=== PATIENT | female | born 1940 | race Caucasian/White ===

== ENCOUNTER → 2017-03-30 | Outpatient (CLI) | payer MEDICARE ==
--- NOTE | 2017-03-30 11:46 | Diagnostic Imaging Report ---
PROCEDURE: US Carotid Duplex Bilateral. TECHNIQUE: Multiple real-time grayscale images were obtained over the carotid arteries in various projections bilaterally. Additional duplex Doppler and color Doppler images were also obtained. INDICATION: Carotid artery disease. FINDINGS: There is no significant plaque seen on grayscale images. Color Doppler demonstrates patency of the common, internal and external carotid arteries bilaterally. There is antegrade flow demonstrated in the vertebral arteries on both sides. Peak systolic velocities in the right ICA are 77, 67 and 96 cm/s and on the left 62, 78 and 104 cm/s. ICA/CCA ratios are up to 1.2 on the right side and up to 1.1 on the left. IMPRESSION: Estimated underlying stenosis is in the range of 0-25% bilaterally. Dictated by: Dictated on workstation # [id number]
--- NOTE | 2017-03-30 19:26 | ECHOCARDIOGRAPHY REPORT ---
DATE OF SERVICE: 03/30/2017 ECHOCARDIOGRAM ORDERING PHYSICIAN: Dr. Bowman. DIAGNOSIS: Orthopnea, cardiac murmur. FINDINGS: 1. Sinus rhythm. 2. Left atrial dimensions are normal. 3. Aortic root dimensions are normal. 4. Left ventricular systolic function is preserved. Left ventricular ejection fraction is 65%. No LVH is present. 5. There are no wall motion abnormalities. 6. Right heart size and function is normal. 7. There is no evidence of pericardial effusion. 8. Mild diastolic dysfunction is present. 9. IVC is normal. VALVULAR STRUCTURE OF THE HEART: There is mild tricuspid regurgitation with mild mitral regurgitation. There is mild aortic insufficiency with no aortic stenosis noted. The pulmonic valve was not well visualized. RVSP is 31 mmHg. CONCLUSION: 1. LV and RV size and function is normal. 2. LVEF is 65%. 3. There is no significant valvular heart disease. 4. Mild pulmonary hypertension with RVSP of 31 mmHg. Job ID: [id number] DocumentID: [id number] Dictated Date: 03/30/2017 15:46:27 Data Administrator Date: 03/30/2017 18:21:44 Dictated By: REJI MORRIS MD
== END ==
LOC: CARD 09:46
PROVIDERS: ATTEND Family Medicine
DX: I65.23 Occlusion and stenosis of bilateral carotid arteries (principal); R01.1 Cardiac murmur, unspecified; R06.01 Orthopnea; I27.2 Other secondary pulmonary hypertension
CPT/HCPCS: 93306; 93880

== ENCOUNTER → 2017-09-21 | Outpatient (CLI) | payer MEDICARE ==
--- NOTE | 2017-09-21 16:26 | Diagnostic Imaging Report ---
Three views of the right knee. INDICATION: Right knee pain. FINDINGS: There is no fracture, dislocation, or radiopaque foreign body. Marginal osteophytes in the lateral and patellofemoral compartments are seen. No significant joint space narrowing. No suprapatellar effusion is evident. IMPRESSION: [id number] degenerative changes in the medial and patellofemoral compartments. Dictated by: Dictated on workstation # [id number]
== END ==
LOC: RAD 10:02
PROVIDERS: ATTEND Family Medicine
DX: M17.11 Unilateral primary osteoarthritis, right knee (principal)
CPT/HCPCS: 73562

== ENCOUNTER → 2018-01-18 | Outpatient (CLI) | payer MEDICARE ==
[2018-01-18 11:08] LABS: BASOPHILS % (AUTO) 1 % (0-10); EOSINOPHILS # (AUTO) 0.1 10^3/uL (0.0-0.3); EOSINOPHILS % (AUTO) 2 % (0-10); HEMATOCRIT 44 % (35-52); HEMOGLOBIN 14.2 G/DL (11.5-16.0); LYMPHOCYTES # (AUTO) 1.2 X 10^3 (1.0-4.0); LYMPHOCYTES % (AUTO) 26 % (12-44); MEAN CORPUSCULAR HEMOGLOBIN 30 PG (25-34); MEAN CORPUSCULAR HGB CONC 33 G/DL (32-36); MEAN CORPUSCULAR VOLUME 94 FL (80-99); MEAN PLATELET VOLUME 11.6 FL (7.4-10.4); MONOCYTES # (AUTO) 0.5 X 10^3 (0.0-1.0); MONOCYTES % (AUTO) 10 % (0-12); NEUTROPHILS # (AUTO) 2.7 X 10^3 (1.8-7.8); NEUTROPHILS % (AUTO) 61 % (42-75); PLATELET COUNT 194 10^3/uL (130-400); RED BLOOD COUNT 4.67 10^6/uL (4.35-5.85); RED CELL DISTRIBUTION WIDTH 14.3 % (10.0-14.5); WHITE BLOOD COUNT 4.5 10^3/uL (4.3-11.0)
[2018-01-18 11:34] LABS: ALANINE AMINOTRANSFERASE 20 U/L (0-55); ALBUMIN 4.3 GM/DL (3.2-4.5); ALKALINE PHOSPHATASE 80 U/L (40-136); AMYLASE 45 U/L (25-125); BILIRUBIN,TOTAL 0.6 MG/DL (0.1-1.0); BUN/CREATININE RATIO 21; CALCIUM 9.3 MG/DL (8.5-10.1); CARBON DIOXIDE 26 MMOL/L (21-32); CHLORIDE 106 MMOL/L (98-107); CREATININE SERUM 0.73 MG/DL (0.60-1.30); GFR ESTIMATED > 60; GLUCOSE 94 MG/DL (70-105); LIPASE 21 U/L (8-78); POTASSIUM 3.7 MMOL/L (3.6-5.0); SODIUM 141 MMOL/L (135-145); TOTAL PROTEIN 6.8 GM/DL (6.4-8.2)
[2018-01-18 11:41] LABS: ERYTHROCYTE SEDIMENTATION RATE 9 MM/HR (0-30)
--- NOTE | 2018-01-18 12:01 | Diagnostic Imaging Report ---
INDICATION: Fatigue and shortness of breath PA and lateral chest obtained at 1115 hrs am, and compared to 08/31/2009. Heart and mediastinal silhouette are normal in appearance. The lungs are clear. There is no pneumothorax or pleural fluid. There is scoliotic change. There is diffuse degenerative change of the thoracic spine. IMPRESSION: No acute process in the chest and no change from 08/31/2009. Report was called to Liss/product safety officer of Dr. Bowman by jillian at 12:00 pm. Dictated by: Dictated on workstation # [id number]
== END ==
LOC: CARD 10:42
PROVIDERS: ATTEND Family Medicine
DX: R06.00 Dyspnea, unspecified (principal); R07.89 Other chest pain; R53.83 Other fatigue; R10.13 Epigastric pain
CPT/HCPCS: 36415; 71046; 80053; 82150; 83690; 84443; 84484; 85025; 85379; 85652; 93005

== ENCOUNTER → 2018-01-19 | Outpatient (CLI) | payer MEDICARE | LOC: LAB 09:48 | PROVIDERS: ATTEND Family Medicine | DX: S70.262A Insect bite (nonvenomous), left hip, initial encounter (principal); W57.XXXA Bitten or stung by nonvenomous insect and other nonvenomous arthropods, initial encounter | CPT/HCPCS: 36415; 86618; 86666; 86668; 86757 ==

== ENCOUNTER → 2018-02-10 | Outpatient (CLI) | payer MEDICARE | LOC: CARD 13:37 | PROVIDERS: ATTEND Family Medicine | DX: R06.00 Dyspnea, unspecified (principal); R10.13 Epigastric pain; I35.1 Nonrheumatic aortic (valve) insufficiency | CPT/HCPCS: 93306 ==

== ENCOUNTER → 2018-05-31 | Outpatient (CLI) | payer MEDICARE ==
[~2018-05-31] MED LIST: CHOL200014 PO; VIT1TABL83 PO; VITA1TAB17 PO
--- NOTE | 2018-05-31 12:07 | Diagnostic Imaging Report ---
INDICATION: Routine screening. COMPARISON: 07/10/2016 and 04/11/2015. TECHNIQUE: 2D and 3D bilateral screening mammography was performed with CAD. FINDINGS: Scattered fibroglandular densities are identified bilaterally. A biopsy clip in the upper outer left breast is again noted. Areas of nodularity in the retroareolar left breast appear stable to perhaps slightly smaller when compared with the prior exam. There are benign calcifications bilaterally. No spiculated mass or malignant appearing microcalcifications are seen. The axillae are unremarkable. IMPRESSION: No mammographic features suspicious for malignancy are identified. ACR BI-RADS Category 2: Benign findings. Result letter will be mailed to the patient. Note: At least 10% of breast cancer is not imaged by mammography. Dictated by: Dictated on workstation # [id number]
== END ==
LOC: RAD 07:27
PROVIDERS: ATTEND Family Medicine
DX: Z12.31 Encounter for screening mammogram for malignant neoplasm of breast (principal)
CPT/HCPCS: 77067

== ENCOUNTER 2018-06-14 10:05 | Outpatient (CLI) | payer MEDICARE ==
[~2018-06-14] VITALS: Ht 167.6 cm; Wt 68.9 kg
[2018-06-14] MEDS ORDERED: VIT1TABL83 PO (10:15)
[2018-06-14] MEDS ORDERED: CHOL200014 PO (10:15)
[2018-06-14] MEDS ORDERED: VITA1TAB17 PO (10:15)
== END 2018-06-14 10:15 | disposition home or self-care (01) ==
LOC: PREOP 10:05
PROVIDERS: ATTEND Surgery
DX: Z01.818 Encounter for other preprocedural examination (principal)

== ENCOUNTER 2018-06-15 09:10 | Day surgery (SDC) | payer MEDICARE ==
[~2018-06-15] VITALS: Ht 167.6 cm; Wt 68.9 kg
[2018-06-15] MEDS ORDERED: NS IV 500 ML 500 ML IV PRN (09:12)
[2018-06-15] MEDS ORDERED: HURRICAINE EXT TUBE (BENZOCAINE) XX PRN (09:15)
[2018-06-15] MEDS ORDERED: NS IV 500 ML 500 ML ONE (09:15)
[2018-06-15] MEDS ORDERED: LIDOCAINE JELLY 2% (XYLOCAINE) 5 ML TUBE MM PRN (09:15)
[2018-06-15 09:20] VITALS: BP 143/99
[2018-06-15] MEDS ORDERED: LIDOCAINE JELLY 2% (XYLOCAINE) 5 ML TUBE ONE (09:53)
[2018-06-15] MEDS ORDERED: fentaNYL INJECTION 100 MCG/2 ML AMP ONE ×2 (09:53)
[2018-06-15] MEDS ORDERED: MIDAZOLAM 2 MG/2 ML (VERSED) VIAL ONE ×4 (09:53→09:54)
[2018-06-15] MEDS ORDERED: HURRICAINE EXT TUBE (BENZOCAINE) ONE (09:54)
[2018-06-15] MEDS: fentaNYL INJECTION 100 MCG/2 ML AMP IVP PRN ×4 (10:20→10:50)
--- NOTE | 2018-06-15 10:20 | Progress Note-Pre Operative ---
Pre-Operative Progress Note H&P Reviewed The H&P was reviewed, patient examined and no changes noted. Date Seen by Provider: Jun 15, 2018 Time Seen by Provider: 09:45 Date H&P Reviewed: Jun 15, 2018 Time H&P Reviewed: 09:45 Pre-Operative Diagnosis: abdominal pain, GERD KIEL PIEDRA MD Jun 15, 2018 10:20 am
--- NOTE | 2018-06-15 10:20 | Conscious Sedation/ASA ---
Conscious Sedation Pre-Proced Time Reviewed: 09:45 ASA Class: 2 Airway Mallampati Classification: ([place] appropriate class) I. II. III, IV Lungs Heart ASA score ASA 1: a normal healthy patient ASA 2: a patient with a mild systemic disease (mid diabetes, controlled hypertension, obesity ASA 3: a patient with a severe systemic disease that limits activity (angina , COPD, prior Myocardial infarction) ASA 4: a patient with an incapacitating disease that is a constant threat to life (CHF, renal failure) ASA 5: a moribund patient not expected to survive 24 hrs. (ruptured aneurysm) ASA 6: a declared brain patient whose organs are being harvested. For emergent operations, add the letter E after the classification Grade 2 Sedation Plan: Analgesia, Amnesia, Plan communicated to team members, Discussed options with patient/fam, Discussed risks with patient/fam Note The patient is an appropriate candidate to undergo the planned procedure, sedation, and anesthesia. The patient immediately re-assessed prior to indication. KIEL PIEDRA MD Jun 15, 2018 10:19 am
[2018-06-15] MEDS: MIDAZOLAM 2 MG/2 ML (VERSED) VIAL IVP PRN ×4 (10:25→10:47)
[2018-06-15] MEDS ORDERED: ONDANSETRON 4 MG/2 ML (SDV) Z0FRAN IV PRN (10:30)
[2018-06-15] MEDS ORDERED: ACETAMINOPHEN 325 MG TABLET PO PRN (10:30)
--- NOTE | 2018-06-15 11:08 | Progress Note-Post Operative ---
Post-Operative Progess Note Surgeon (s)/Wad Compressor Operator Adjuster (s) Surgeon KIEL PIEDRA MD Wad Compressor Operator Adjuster: none Pre-Operative Diagnosis abdominal pain, GERD Post-Operative Diagnosis reflux esophagitis(grade 2), no HH, mild gastritis. chronic stage 2 ext and int hemorrhoids. Procedure & Operative Findings Date of Procedure 06/15/18 Procedure Performed/Findings EGD with bx. Colonoscopy. Anesthesia Type CS Estimated Blood Loss Estimated blood loss (mL): minimal Specimens/Packing Specimens Removed GE jxn, antrum KIEL PIEDRA MD Jun 15, 2018 11:08 am
--- NOTE | 2018-06-15 11:10 | Discharge Inst-Surgical ---
D/C Lap Instructions-TADEO Follow Up 10 yrs or PRN Activity as tolerated High Fiber Diet 25g or more per day Avoid Alcohol, Caffeine, Spicy [place] and Acid foods. Drink 64 fluid oz or more of fluids per day. Symptoms to Report: Fever over 101 degree F, Nausea/Vomiting If any problems/questions: Contact your physician or go to Emergency Room KIEL PIEDRA MD Jun 15, 2018 11:10 am
[2018-06-15 11:30] VITALS: BP 127/76
[2018-06-15 12:05] VITALS: BP 118/82
[2018-06-15 16:29] VITALS: BP 118/82
--- NOTE | 2018-06-15 19:11 | OPERATIVE REPORT ---
DATE OF SERVICE: 06/15/2018 ATTENDING PRIMARY CARE PHYSICIAN: Dr. Bowman. PREOPERATIVE DIAGNOSES: Crampy abdominal pain, diffuse abdominal pain, heme positive stools. POSTOPERATIVE DIAGNOSES: Reflux esophagitis grade II. No hiatal hernia, mild gastritis. Chronic stage II external and internal hemorrhoids. Remainder of the colon and rectum were normal. PROCEDURE: EGD with biopsy, colonoscopy. SURGEON: Kiel Piedra MD ANESTHESIA: Conscious sedation. ESTIMATED BLOOD LOSS: Minimal. FINDINGS: EGD, reflux esophagitis class B with grade II. No hiatal hernia identified. Mild gastritis. No formal ulcers, polyps or any neoplasms. Pylorus and duodenum appeared normal. Colonoscopy, chronic stage II external and internal hemorrhoids, not actively edematous nor inflamed and no bleeding. The remainder of the colon or rectum were normal. There were no polyps identified. DISPOSITION: The patient tolerated the procedure well. INDICATIONS: The patient is a 77-year-old female known to us. She has had crampy left-sided abdominal pain for many years; however, states that this may be worsening over time. She also does report some occasional episodes of reflux and does notice blood in her stools as well. She does follow a healthy diet high in protein as well as high in fiber and does have a soft stool daily. DESCRIPTION OF PROCEDURE: The patient was brought to the endoscopy suite, laid in the left lateral decubitus position. After adequate IV pain and sedative medications and conscious sedation anesthesia, the mouthpiece was applied. The endoscope was then placed in the mouth visualizing the pharynx and hypopharyngeal region. Vocal cords, epiglottis and vallecula identified and appeared to be normal. The endoscope was then gently intubated in the esophageal opening and esophagus insufflated. The endoscope was then advanced to the first, second and third portion of the esophagus at the level of the GE junction, a reflux esophagitis class B identified. There are no ulcers or strictures identified in this region. A biopsy was taken with forceps with visualization of good hemostasis. The endoscope was then easily advanced into the stomach and endoscope retroflexed. No hiatal hernia was identified. There was a mild gastritis. There were no ulcers, polyps or any neoplasms identified. A biopsy was taken of the stomach antrum for H. pylori with visualization of good hemostasis. The endoscope was then advanced to the pylorus into the first and second portions of the duodenum, which appeared normal with no distal obstructions. The endoscope was then slowly withdrawn while taking a second look and suctioning of residual air with no additional findings. The patient tolerated this portion of the procedure well. We will recommend continued medical management with continued high fiber and high protein diet. Her only risk factors taking caffeinated beverages and if her symptoms of reflux were to worsen, we will just recommend decreasing or cessation of caffeinated beverages. Under the same anesthesia, we then proceeded with the colonoscopy portion of procedure. A digital rectal examination was performed, which revealed chronic stage II external and internal hemorrhoids, not actively edematous nor inflamed and no bleeding. Normal sphincter tone was felt and there were no palpable masses. The endoscope was then intubated into the anus and rectum gently insufflated. The endoscope was then advanced through the valves of [place] in the rectum with no polyps or neoplasms identified. The endoscope was then advanced to the sigmoid colon where no diverticulosis identified. The endoscope was then advanced to the remainder of the descending, transverse and ascending colon to the cecum. These segments were normal. There were no polyps or any neoplasms identified as well as no bleeding sources. The endoscope was then slowly withdrawn while taking a second look and suctioning of residual air with no additional findings. The patient tolerated the procedure well. We feel that her crampy abdominal pain is most likely secondary to a high fiber diet as well as underlying irritable bowel syndrome. It was explained to her that this was a normal process and that she should continue with a high fiber diet. Over time, the crampy abdominal pain tends to decrease in severity and becomes more tolerable. No neoplasms were identified and she does not need another colonoscopy for another 10 years. Job ID: [id number] DocumentID: [id number] Dictated Date: 06/15/2018 11:04:22 Circular Head Saw Operator Date: 06/15/2018 19:10:31 Dictated By: KIEL PIEDRA MD [facility]
== END 2018-06-15 12:15 | disposition home or self-care (01) ==
LOC: ENDO 09:10
PROVIDERS: ATTEND Surgery
DX: K21.0 Gastro-esophageal reflux disease with esophagitis (principal); K64.1 Second degree hemorrhoids; Z80.0 Family history of malignant neoplasm of digestive organs; Z80.3 Family history of malignant neoplasm of breast; H35.30 Unspecified macular degeneration

== ENCOUNTER 2018-12-30 06:59 | Outpatient (RCR) | payer MEDICARE ==
[~2018-12-30] VITALS: Ht 167.6 cm; Wt 72.6 kg
[2018-12-30] MEDS: CATHETER FLUSH 10 ML SYR IV PRN ×2 (07:24→08:52)
[2018-12-30] MEDS ORDERED: REGADENOSON 0.4 MG/5 ML SYR (LEXISCAN) IV ONE ×2 (08:15→08:48)
[2018-12-30 08:50] VITALS: BP 137/74
--- NOTE | 2019-01-03 09:00 | STRESS TEST ---
DATE OF SERVICE: 12/30/2018 RESTING AND POST REGADENOSON TECHNETIUM-99M TETROFOSMIN SPECT CT IMAGING ORDERING PHYSICIAN: Dr. Chavez. PRIMARY PHYSICIAN: Dr. Bowmna. CLINICAL DIAGNOSIS: Shortness of breath. Baseline images were carried out after injection of 10.17 mCi of technetium-99m Tetrofosmin. This was followed by 0.4 mg regadenoson and 32.8 mCi technetium-99m Tetrofosmin for stress imaging. The electrocardiogram showed sinus rhythm at baseline. It did not change significantly with the regadenoson infusion. The patient noted some shortness of breath and stomach discomfort following regadenoson infusion. This resolved in a few minutes. Overall, she tolerated the procedure well. Review of images at rest and following stress does not indicate any significant perfusion defects consistent with significant myocardial ischemia or infarction. Gated images show normal global left ventricular systolic function with normal regional wall motion. Left ventricular ejection fraction is calculated to be 71%. Left ventricular end diastolic volume is 49 mL. TID is absent (0.91). CONCLUSIONS: 1. No evidence of any significant myocardial ischemia or infarction on the study. 2. Normal regional wall motion. 3. Normal global left ventricular systolic function with a calculated ejection fraction of 71%. Job ID: [id number] DocumentID: [id number] Dictated Date: 01/03/2019 08:36:28 Control Specialist Date: 01/03/2019 09:00:09 Dictated By: MERCED CHAVEZ MD, MA, FACP, FACC,
[2019-02-22] MEDS ORDERED: CARB10DR (01:16)
[2019-02-22] MEDS ORDERED: ONDA4TAB11 PO (02:21)
[2019-02-22] MEDS ORDERED: HYOS0.1283 SL (02:21)
== END 2019-03-30 | disposition home or self-care (01) ==
LOC: CARD 06:59
PROVIDERS: ATTEND Internal Medicine Cardiovascular Disease
DX: R06.02 Shortness of breath (principal); R00.2 Palpitations; R20.0 Anesthesia of skin; R42 Dizziness and giddiness
CPT/HCPCS: 78452; 93017

== ENCOUNTER → 2019-01-31 | Outpatient (CLI) | payer MEDICARE | LOC: RAD 13:00 | PROVIDERS: ATTEND Nurse Practitioner Family | DX: I70.213 Atherosclerosis of native arteries of extremities with intermittent claudication, bilateral legs (principal) | CPT/HCPCS: 93923 ==

== ENCOUNTER 2019-02-22 01:00 | Emergency (ER) | payer MEDICARE ==
[~2019-02-22] VITALS: Ht 167.6 cm; Wt 72.6 kg
[2019-02-22] MEDS ORDERED: CARB10DR (01:16)
[2019-02-22] MEDS ORDERED: LACTATED RINGERS 1,000 ML IV ONE (01:22)
[2019-02-22] MEDS ORDERED: ONDANSETRON 4 MG/2 ML (SDV) Z0FRAN IVP ONE (01:30)
--- NOTE | 2019-02-22 01:36 | ED GI ---
General Chief Complaint: Abdominal/GI Problems Stated Complaint: POSS FOOD POISONING Nursing Triage Note: NAUSEA/ABDOMINAL CRAMPING Sepsis Screen: No Definite Risk Source of Information: Patient History of Present Illness Date Seen by Provider: Feb 22, 2019 Time Seen by Provider: 01:20 Initial Comments PT ARRIVES VIA POV FROM HOME WITH SISTER, WITH WHOM SHE LIVES, AND A FEMALE FRIEND PT STATES AROUND 1800 TONIGHT, SHE BEGAN TO HAVE "EXTREME NAUSEA" --NO VOMITING HAD VERY BRIEF "FLEETING" ABDOMINAL CRAMPING, BUT NOT NOW. NO OTHER ABDOMINAL PAIN STATES "MY KIDNEYS HURT" NO DIARRHEA, HAD A NORMAL BM THIS AM NO FEVER NO URINARY SYMPTOMS AND VOIDING A NORMAL AMOUNT NO RELIEF WITH TUMS NO SICK CONTACTS PT AND FRIEND ATE AT [facility]--ATE DIFFERENT THINGS. FRIEND IS NOT ILL. NO HISTORY OF GI PROBLEMS PCP: DR. LR Allergies and Home Medications Allergies Coded Allergies: clindamycin (Verified Allergy, Unknown, NAUSEA, 06/14/18) epinephrine (Verified Allergy, Unknown, 04/16/09) hydrocodone (Verified Allergy, Unknown, hallucinations, 06/14/18) ibuprofen (Verified Allergy, Unknown, swelling, 06/14/18) Home Medications Cholecalciferol (Vitamin D3) 2,000 Unit Tablet, 2,000 UNIT PO DAILY, (Reported) Hyoscyamine Sulfate 0.125 Mg Tab.subl, 1-2 TAB SL Q4H Prescribed by: ETHEL XIE on 02/22/19220 Ondansetron 4 Mg Tab.rapdis, 4 MG PO Q4H Prescribed by: ETHEL XIE on 02/22/19220 Vit A,C & E/Lutein/Minerals 1 Each Tablet, 1 EACH PO DAILY, (Reported) Vitamin B Complex 1 Each Tablet, 1 EACH PO DAILY, (Reported) Patient Home Medication List Home Medication List Reviewed: Yes Review of Systems Review of Systems Constitutional: no symptoms reported; No chills, No diaphoresis, No dizziness, No fever Respiratory: No Symptoms Reported Cardiovascular: No Symptoms Reported Gastrointestinal: Abdominal Pain; Denies Diarrhea; Nausea, Poor Appetite; Denies Vomiting Genitourinary: No Symptoms Reported Musculoskeletal: see HPI, back pain Skin: no symptoms reported Psychiatric/Neurological: No Symptoms Reported Endocrine: No Symptoms Reported Hematologic/Lymphatic: No Symptoms Reported Past Vylcdqs-Qfgzev-Ejqowa Hx Patient Social History Alcohol Use: Rarely Uses Recreational Drug Use: No Smoking Status: Never a Smoker 2nd Hand Smoke Exposure: No Recent Foreign Travel: No Contact w/Someone Who Travel: No Recent Infectious Disease Expo: No Recent Hopitalizations: No Immunizations Up To Date Tetanus Booster (TDap): Unknown Seasonal Allergies Seasonal Allergies: No Past Medical History Surgeries: Yes (R FOOT NEUROMA; BREAST BIOPSIES X 2; HYST/BSO; BASAL CELL CANCER REMOVED FROM HEAD; EGD/COLONOSCOPIES--LAST ONE 06/2018) Breast, Eye Surgery, Hysterectomy, Oophorectomy, Orthopedic, Tonsillectomy Respiratory: No Cardiac: No Neurological: Yes Neuropathy : No Reproductive Disorders: No TEST CLERK History: Hysterectomy, Menopausal Sexually Transmitted Disease: No Genitourinary: Yes UTI-Chronic Gastrointestinal: Yes Gastroesophageal Reflux Musculoskeletal: No Endocrine: No HEENT: Yes Cataract, Macular Degeneration Cancer: Yes Skin Did You Recieve Any Treatments: Yes What Type of Treatment Did You: Surgical Intervention Psychosocial: No Integumentary: No Blood Disorders: No Physical Exam Vital Signs Vital Signs - First Documented 02/22/19 01:09 Temp 98.9 Pulse 72 Resp 16 B/P (MAP) 149/82 (104) Pulse Ox 99 O2 Delivery Room Air Capillary Refill : Less Than 3 Seconds Height/Weight/BMI Height: 5'6.00" Weight: 160lbs. 0.0oz. 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, no motor/sensory deficits, alert, oriented x 3 Skin: normal color, warm/dry Focused Exam Lactate Level 02/22/19 01:45: Lactic Acid Level 1.05 Lactic Acid Level Laboratory Tests Test 02/22/19 01:45 Lactic Acid Level 1.05 MMOL/L (0.50-2.00) Progress/Results/Core Measures Results/Orders Lab Results Laboratory Tests Test 02/22/19 01:40 02/22/19 01:45 Range/Units Urine Color YELLOW Urine Clarity CLEAR Urine pH 8 5-9 Urine Specific [place] 1.010 L 1.016-1.022 Urine Protein NEGATIVE NEGATIVE Urine Glucose (UA) NEGATIVE NEGATIVE Urine Ketones NEGATIVE NEGATIVE Urine Nitrite NEGATIVE NEGATIVE Urine Bilirubin NEGATIVE NEGATIVE Urine Urobilinogen NORMAL NORMAL MG/DL Urine Leukocyte Esterase 1+ H NEGATIVE Urine RBC (Auto) NEGATIVE NEGATIVE Urine RBC NONE /HPF Urine WBC NONE /HPF Urine Squamous Epithelial Cells 0-2 /HPF Urine Crystals NONE /LPF Urine Bacteria NEGATIVE /HPF Urine Casts NONE /LPF Urine Mucus NEGATIVE /LPF Urine Culture Indicated NO White Blood Count 9.1 4.3-11.0 10^3/uL Red Blood Count 4.79 4.35-5.85 10^6/uL Hemoglobin 14.2 11.5-16.0 G/DL Hematocrit 44 35-52 % Mean Corpuscular Volume 92 80-99 FL Mean Corpuscular Hemoglobin 30 25-34 PG Mean Corpuscular Hemoglobin Concent 32 32-36 G/DL Red Cell Distribution Width 14.1 10.0-14.5 % Platelet Count 186 130-400 10^3/uL Mean Platelet Volume 11.3 H 7.4-10.4 FL Neutrophils (%) (Auto) 86 H 42-75 % Lymphocytes (%) (Auto) 8 L 12-44 % Monocytes (%) (Auto) 6 0-12 % Eosinophils (%) (Auto) 1 0-10 % Basophils (%) (Auto) 0 0-10 % Neutrophils # (Auto) 7.9 H 1.8-7.8 X 10^3 Lymphocytes # (Auto) 0.7 L 1.0-4.0 X 10^3 Monocytes # (Auto) 0.5 0.0-1.0 X 10^3 Eosinophils # (Auto) 0.1 0.0-0.3 10^3/uL Basophils # (Auto) 0.0 0.0-0.1 10^3/uL Sodium Level 142 135-145 MMOL/L Potassium Level 3.6 3.6-5.0 MMOL/L Chloride Level 105 98-107 MMOL/L Carbon Dioxide Level 25 21-32 MMOL/L Anion Gap 12 5-14 MMOL/L Blood Urea Nitrogen 18 7-18 MG/DL Creatinine 0.78 0.60-1.30 MG/DL Estimat Glomerular Filtration Rate > 60 BUN/Creatinine Ratio 23 Glucose Level 122 H 70-105 MG/DL Lactic Acid Level 1.05 0.50-2.00 MMOL/L Calcium Level 9.4 8.5-10.1 MG/DL Corrected Calcium 9.2 8.5-10.1 MG/DL Magnesium Level 2.1 1.8-2.4 MG/DL Total Bilirubin 0.5 0.1-1.0 MG/DL Aspartate Amino Transf (AST/SGOT) 26 5-34 U/L Alanine Aminotransferase (ALT/SGPT) 28 0-55 U/L Alkaline Phosphatase 87 40-136 U/L Total Protein 6.7 6.4-8.2 GM/DL Albumin 4.2 3.2-4.5 GM/DL Amylase Level 44 25-125 U/L Lipase 28 8-78 U/L My Orders Orders - ETHEL XIE DO Ed Iv/Invasive Line Start (02/22/19 01:22) Monitor-Rhythm Ecg Trace Only (02/22/19 01:22) Amylase (02/22/19:22) Cbc With Automated Diff (02/22/19 01:22) Comprehensive Metabolic Panel (02/22/19 01:22) Lactic Acid Analyzer (02/22/19 01:22) Lipase (02/22/19:22) Magnesium (02/22/19 01:22) Ua Culture If Indicated (02/22/19 01:22) Ondansetron Injection (Zofran Injectio (02/22/19 01:30) Ed Iv/Invasive Line Start (02/22/19 01:22) Lactated Ringers (Lr 1000 Ml Iv Solution (02/22/19 01:22) Rx-Hyoscyamine Tab (Rx-Levsin Sl) (02/22/19 02:21) Rx-Ondansetron Po (Rx-Zofran Po) (02/22/19 02:21) Rx-Hyoscyamine Tab (Rx-Levsin Sl) (02/22/19 02:24) Rx-Ondansetron Po (Rx-Zofran Po) (02/22/19 02:23) Medications Given in ED Current Medications Medications Dose Ordered Sig/Tai Route Start Time Stop Time Status Last Admin Dose Admin Lactated Ringer's 1,000 ml @ 0 mls/hr Q0M ONCE IV 02/22/19 01:22 02/22/19 01:24 DC 02/22/19 01:43 0 MLS/HR Ondansetron HCl 4 mg ONCE ONCE IVP 02/22/19 01:30 02/22/19 01:31 DC 02/22/19 01:43 4 MG Vital Signs/I&O 02/22/19 02/22/19 01:09 02:47 Temp 98.9 98.9 Pulse 72 74 Resp 16 20 B/P (MAP) 149/82 (104) 161/88 (112) Pulse Ox 99 97 O2 Delivery Room Air Room Air Blood Pressure Mean: 104 Progress Progress Note : Progress Note NAUSEA IMPROVED WITH MEDICATIONS--STATES SHE FEELS MUCH BETTER PT TOLERATING ICE CHIPS PRIOR TO DISMISSAL PT FEELS COMFORTABLE GOING HOME Departure Impression Primary Impression: Gastroenteritis Disposition: HOME, SELF-CARE Condition: Improved Departure-Patient Inst. Referrals: MONTSERRAT LR DO (PCP/Family) Primary Care Physician Patient Instructions: [id number] Add. Discharge Instructions: CLEAR LIQUIDS--WATER, BROTH, JELLO, GATORADE WHEN YOU ARE FEELING BETTER AND TOLERATING LIQUIDS, YOU MAY ADD A BRATS DIET TO CLEAR LIQUIDS--BANANAS, RICE, APPLESAUCE, TOAST, SALTINES FOLLOW UP WITH YOUR DR IN 2 DAYS IF NO BETTER, RETURN TO ER IF WORSE All discharge instructions reviewed with patient and/or family. Voiced understanding. Scripts Hyoscyamine Sulfate (Levsin-Sl) 0.125 Mg Tab.subl 1-2 TAB SL Q4H for Abdominal Pain, #10 TAB Prov: ETHEL XIE DO 02/22/19 Ondansetron (Ondansetron Odt) 4 Mg Tab.rapdis 4 MG PO Q4H for Nausea/Vomiting, #10 TAB Prov: ETHEL XIE DO 02/22/19 ETHEL XIE DO Feb 22, 2019 01:36
[2019-02-22 01:53] LABS: BILIRUBIN,URINE NEGATIVE (NEGATIVE); CLARITY,URINE CLEAR; COLOR,URINE YELLOW; GLUCOSE, URINE (UA) NEGATIVE (NEGATIVE); KETONES,URINE NEGATIVE (NEGATIVE); LEUKOCYTE ESTERASE ,URINE 1+ (NEGATIVE); NITRITE,URINE NEGATIVE (NEGATIVE); PH,URINE 8 (5-9); PROTEIN,URINE NEGATIVE (NEGATIVE); UROBILINOGEN,URINE NORMAL (NORMAL)
[2019-02-22 01:54] LABS: BASOPHILS % (AUTO) 0 % (0-10); EOSINOPHILS # (AUTO) 0.1 10^3/uL (0.0-0.3); EOSINOPHILS % (AUTO) 1 % (0-10); HEMATOCRIT 44 % (35-52); HEMOGLOBIN 14.2 G/DL (11.5-16.0); LYMPHOCYTES # (AUTO) 0.7 X 10^3 (1.0-4.0); LYMPHOCYTES % (AUTO) 8 % (12-44); MEAN CORPUSCULAR HEMOGLOBIN 30 PG (25-34); MEAN CORPUSCULAR HGB CONC 32 G/DL (32-36); MEAN CORPUSCULAR VOLUME 92 FL (80-99); MEAN PLATELET VOLUME 11.3 FL (7.4-10.4); MONOCYTES # (AUTO) 0.5 X 10^3 (0.0-1.0); MONOCYTES % (AUTO) 6 % (0-12); NEUTROPHILS # (AUTO) 7.9 X 10^3 (1.8-7.8); NEUTROPHILS % (AUTO) 86 % (42-75); PLATELET COUNT 186 10^3/uL (130-400); RED CELL DISTRIBUTION WIDTH 14.1 % (10.0-14.5); WHITE BLOOD COUNT 9.1 10^3/uL (4.3-11.0)
[2019-02-22 02:11] LABS: BACTERIA,URINE NEGATIVE /HPF; SQUAMOUS EPITHELIAL CELL,UR 0-2 /HPF
[2019-02-22 02:13] LABS: ALANINE AMINOTRANSFERASE 28 U/L (0-55); ALBUMIN 4.2 GM/DL (3.2-4.5); ALKALINE PHOSPHATASE 87 U/L (40-136); AMYLASE 44 U/L (25-125); BILIRUBIN,TOTAL 0.5 MG/DL (0.1-1.0); BUN/CREATININE RATIO 23; CALCIUM 9.4 MG/DL (8.5-10.1); CARBON DIOXIDE 25 MMOL/L (21-32); CHLORIDE 105 MMOL/L (98-107); CREATININE SERUM 0.78 MG/DL (0.60-1.30); GFR ESTIMATED > 60; GLUCOSE 122 MG/DL (70-105); LIPASE 28 U/L (8-78); MAGNESIUM 2.1 MG/DL (1.8-2.4); POTASSIUM 3.6 MMOL/L (3.6-5.0); SODIUM 142 MMOL/L (135-145); TOTAL PROTEIN 6.7 GM/DL (6.4-8.2)
[2019-02-22] MEDS ORDERED: HYOS0.1283 SL (02:21)
[2019-02-22] MEDS ORDERED: RX-HYOSCYAMINE 0.125 MG SL (LEVSIN) PPK#6 SL STA (02:21)
[2019-02-22] MEDS ORDERED: ONDA4TAB11 PO (02:21)
[2019-02-22] MEDS ORDERED: RX-ONDANSETRON 4 MG ODT (ZOFRAN) PPK #4 PO STA (02:21)
--- NOTE | 2019-02-22 02:21 | NUR ---
ICE CHIPS PROVIDED.
[2019-02-22] MEDS ORDERED: RX-ONDANSETRON 4 MG ODT (ZOFRAN) PPK #4 ONE (02:23)
[2019-02-22] MEDS ORDERED: RX-HYOSCYAMINE 0.125 MG SL (LEVSIN) PPK#6 ONE (02:24)
[2019-02-22 02:47] VITALS: BP 161/88
== END 2019-02-22 02:47 | disposition home or self-care (01) ==
LOC: EDUNIT# 01:00 → ER 01:02
DX: K52.9 Noninfective gastroenteritis and colitis, unspecified (principal); K21.9 Gastro-esophageal reflux disease without esophagitis; Z88.0 Allergy status to penicillin; Z88.5 Allergy status to narcotic agent; Z88.6 Allergy status to analgesic agent; Z88.8 Allergy status to other drugs, medicaments and biological substances; Z90.710 Acquired absence of both cervix and uterus; Z85.828 Personal history of other malignant neoplasm of skin; Z90.89 Acquired absence of other organs; Z87.440 Personal history of urinary (tract) infections
CPT/HCPCS: 36415; 80053; 81000; 82150; 83605; 83690; 83735; 85025; 93041

== ENCOUNTER → 2019-06-30 | Outpatient (CLI) | payer MEDICARE ==
[~2019-06-30] MED LIST changes: +CARB10DR; +HYOS0.1283 SL; +ONDA4TAB11 PO
--- NOTE | 2019-06-30 10:22 | Diagnostic Imaging Report ---
CLINICAL INDICATION: Patient fell backwards on June 04 hitting back of head. No loss of consciousness. Patient has pain when lying down and has a headache since Wednesday. EXAM: Axial CT scan of the brain performed without IV contrast. COMPARISON: None. FINDINGS: There is no evidence of acute cerebral infarct, intracranial hemorrhage, or gross mass effect. There is no significant brain parenchymal volume loss. There are subtle small patchy areas of low-attenuation white matter changes involving both cerebral hemispheres, likely representing very mild chronic small vessel ischemic disease. There is normal romero-white matter distinction. There is no significant midline shift or herniation. There is no evidence of hydrocephalus. The basal cisterns are unremarkable. The skull, extracranial soft tissue, and orbits are unremarkable. The paranasal sinuses are unremarkable. Temporal bones show no significant abnormality. IMPRESSION: Unremarkable CT scan of the brain for age. Dictated by: Dictated on workstation # [id number]
== END ==
LOC: RAD 09:40
PROVIDERS: ATTEND Family Medicine
DX: S09.90XA Unspecified injury of head, initial encounter (principal); W18.30XA Fall on same level, unspecified, initial encounter
CPT/HCPCS: 70450

== ENCOUNTER → 2020-06-06 | Outpatient (CLI) | payer MEDICARE ==
--- NOTE | 2020-06-06 10:18 | Diagnostic Imaging Report ---
INDICATION: Routine screening. COMPARISON is made with prior mammograms from 05/31/2018 and 07/10/2016. 2-D and 3-D bilateral screening mammography was performed with CAD. Scattered fibroglandular densities are identified bilaterally. Biopsy marker clip in the upper outer left breast is again noted. Benign calcifications are again noted. Areas of nodularity retroareolar left breast are stable. No new mass or malignant appearing microcalcifications are seen. Axillae are unremarkable. IMPRESSION: BI-RADS Category 2 No mammographic features suspicious for malignancy are identified. ACR BI-RADS Category 2: Benign findings. Result letter will be mailed to the patient. Note: At least 10% of breast cancer is not imaged by mammography. Dictated by: Dictated on workstation # [id number]
== END ==
LOC: RAD 07:39
PROVIDERS: ATTEND Family Medicine
DX: Z12.31 Encounter for screening mammogram for malignant neoplasm of breast (principal)
CPT/HCPCS: 77063; 77067

== ENCOUNTER → 2021-08-15 | Outpatient (CLI) | payer MEDICARE ==
--- NOTE | 2021-08-15 15:48 | Diagnostic Imaging Report ---
INDICATION: Routine screening. COMPARISON is made with prior mammograms from 06/06/2020 and 05/31/2018. 2-D and 3-D bilateral screening mammography was performed with CAD. Both breasts remain heterogeneously dense, limiting the sensitivity of mammography. A biopsy marker clip in the lateral left breast is again noted. There are benign calcifications present. Areas of nodularity in the retroareolar left breast appears stable to perhaps slightly less prominent on today's study. No new mass or malignant-appearing microcalcifications are seen. Axillae are unremarkable. IMPRESSION: BI-RADS Category 2 No mammographic features suspicious for malignancy are identified. ACR BI-RADS Category 2: Benign findings. Result letter will be mailed to the patient. Note: At least 10% of breast cancer is not imaged by mammography. Dictated by: Dictated on workstation # [id number]
== END ==
LOC: RAD 09:08
PROVIDERS: ATTEND Family Medicine
DX: Z12.31 Encounter for screening mammogram for malignant neoplasm of breast (principal)
CPT/HCPCS: 77063; 77067

== ENCOUNTER 2021-11-25 10:00 | Day surgery (SDC) | payer MEDICARE ==
[~2021-11-25] VITALS: Ht 168.9 cm; Wt 71.5 kg
[2021-11-25 09:28] VITALS: BP 161/97
[~2021-11-25 10:00] MED LIST changes: +LIDOCAINE 1% INJ 20 ML VIAL INJ ONE; +LIDOCAINE 1% INJ 20 ML VIAL ONE
--- NOTE | 2021-11-25 16:26 | OPERATIVE REPORT ---
DATE OF SERVICE: 11/25/2021 INDICATIONS: The patient is an 81-year-old lady, who has been experiencing palpitations that are infrequent, but quite bothersome to her. Implantable loop recorder implantation was carried out today after having obtained an informed consent. DESCRIPTION OF PROCEDURE: [facility] The left prepectoral area was prepared and draped in the usual sterile fashion. Lidocaine 1% was used for local anesthesia. The tools provided with the [employer] LINQ II device was used to make a subcutaneous pocket anterior to the fourth intercostal space into which the device was placed and the wound edges were closed using Dermabond and Steri-Strips. She tolerated the procedure well. The serial number of the device is [id number]. Job ID: [id number] DocumentID: [id number] Dictated Date: 11/25/2021 10:03:53 Assembler Surgical Garment Date: 11/25/2021 16:24:40 Dictated By: MERCED MANSFIELD MD, MA, FACP, FACC,
== END 2021-11-25 10:27 | disposition home or self-care (01) ==
LOC: CATH 10:00
PROVIDERS: ATTEND Internal Medicine Cardiovascular Disease
DX: R07.89 Other chest pain (principal); R00.2 Palpitations; R20.0 Anesthesia of skin; M25.512 Pain in left shoulder; I35.1 Nonrheumatic aortic (valve) insufficiency; I47.1 Supraventricular tachycardia; I49.3 Ventricular premature depolarization; R22.42 Localized swelling, mass and lump, left lower limb; I77.9 Disorder of arteries and arterioles, unspecified; Z79.899 Other long term (current) drug therapy
CPT/HCPCS: 33285; C1764

== ENCOUNTER → 2021-11-27 | Outpatient (CLI) | payer MEDICARE ==
[~2021-11-27] MED LIST changes: -LIDOCAINE 1% INJ 20 ML VIAL INJ ONE; -LIDOCAINE 1% INJ 20 ML VIAL ONE
--- NOTE | 2021-11-27 13:43 | Diagnostic Imaging Report ---
PROCEDURE: US left lower extremity venous. TECHNIQUE: Multiple real-time grayscale images were obtained over the left lower extremity in various projections. Additional duplex Doppler and color Doppler images were also obtained. INDICATION: Localized swelling and lump in the left lower leg. FINDINGS: There is no evidence of left lower extremity DVT. Left lower extremity deep venous system shows normal compressibility with normal response to augmentation and Valsalva. No fluid collection or mass is detected. IMPRESSION: No evidence of left lower extremity DVT. Dictated by: Dictated on workstation # [id number]
== END ==
LOC: RAD 10:45
PROVIDERS: ATTEND Nurse Practitioner Family
DX: R22.42 Localized swelling, mass and lump, left lower limb (principal)

== ENCOUNTER → 2022-01-02 | Outpatient (CLI) | payer MEDICARE ==
--- NOTE | 2022-01-02 08:24 | Diagnostic Imaging Report ---
EXAMINATION: Lumbosacral spine 2 or 3 views HISTORY: Low back pain and left hip pain. No known injury. COMPARISON: 01/18/2018. FINDINGS: There is no acute fracture or dislocation of the lumbar spine. There is slight left convexity curvature of the lumbar spine. There is grade 1 anterolisthesis of L5 on S1. No focal osseous lesions are seen. Degenerative changes are seen in the lumbar spine with disc height loss, marginal osteophytes, and facet hypertrophy. These are greatest at the L4-L5 and L5-S1 levels. IMPRESSION: 1. No acute fracture or dislocation in the lumbar spine. 2. Grade 1 anterolisthesis of L5 on S1. Consider CT or MRI of the lumbar spine to further evaluate. 3. Degenerative changes in the lumbar spine, greatest at L4-L5 and L5-S1. Dictated by: Dictated on workstation # [id number]
== END ==
LOC: RAD 07:42
PROVIDERS: ATTEND Family Medicine
DX: M43.17 Spondylolisthesis, lumbosacral region (principal); M47.817 Spondylosis without myelopathy or radiculopathy, lumbosacral region
CPT/HCPCS: 72100

== ENCOUNTER → 2022-01-06 | Outpatient (CLI) | payer MEDICARE ==
--- NOTE | 2022-01-06 12:02 | Diagnostic Imaging Report ---
Indication: Left hip pain. Comparison: None Findings: 2 views of left hip demonstrate moderate degenerative joint disease. There is no fracture dislocation. No osseous lesion is seen. Impression: Moderate degenerative joint disease. Dictated by: Dictated on workstation # [id number]
--- NOTE | 2022-01-06 14:23 | Diagnostic Imaging Report ---
INDICATION: Left knee pain. TIME OF EXAM: 11:03 AM Three views of the left knee were obtained. There is mild medial and patellofemoral compartment degenerative change with joint space narrowing and marginal spurring. There is spurring of the tibial spines. Lateral compartment is well maintained. The articular surfaces are smooth. No fracture, dislocation or effusion is seen. IMPRESSION: Degenerative changes. No acute bony abnormality is detected. Dictated by: Dictated on workstation # [id number]
== END ==
LOC: RAD 10:38
PROVIDERS: ATTEND Family Medicine
DX: M17.12 Unilateral primary osteoarthritis, left knee (principal); M16.12 Unilateral primary osteoarthritis, left hip
CPT/HCPCS: 73502; 73562

== ENCOUNTER → 2022-04-15 | Outpatient (CLI) | payer MEDICARE ==
--- NOTE | 2022-04-15 11:15 | Diagnostic Imaging Report ---
INDICATION: Neck pain. Time of Exam: 1102 AM 3 views of the cervical spine were obtained. Curvature and alignment is normal. There is degenerative disc disease at C4-C5, C5-C6 and C6-C7 levels, with disc space narrowing and marginal spurring. Prevertebral tissues are normal. No fractures are seen. Odontoid is intact. IMPRESSION: Lower cervical spondylosis. No acute bony abnormality is detected. Dictated by: Dictated on workstation # [id number]
--- NOTE | 2022-04-15 11:15 | Diagnostic Imaging Report ---
INDICATION: Right shoulder pain. TIME OF EXAM: 11:04 AM FINDINGS: 3 views right shoulder demonstrates normal glenohumeral and acromioclavicular alignment. There are degenerative changes of the glenohumeral joint. There is joint space narrowing. There is some spurring at the humeral head neck junction. There also appears to be some mild hypertrophic degenerative change of the acromioclavicular joint. No fracture or dislocation is identified. IMPRESSION: Degenerative changes. No acute bony abnormality is detected. Dictated by: Dictated on workstation # [id number]
== END ==
LOC: RAD 10:39
PROVIDERS: ATTEND Family Medicine
DX: M47.22 Other spondylosis with radiculopathy, cervical region (principal); M19.011 Primary osteoarthritis, right shoulder
CPT/HCPCS: 72040; 73030

== ENCOUNTER → 2022-09-14 | Outpatient (CLI) | payer MEDICARE ==
--- NOTE | 2022-09-14 14:42 | Diagnostic Imaging Report ---
CLINICAL INDICATION: Patient with dyspnea. EXAM: Chest x-ray, PA and lateral views. COMPARISON: Chest x-ray dated 01/18/2018. FINDINGS: Lungs/pleura: Lungs are clear. There is no pneumothorax. There is no pleural effusion. Mediastinum: Unremarkable. Pulmonary vasculature: Unremarkable. Heart: Heart size is within normal limits. Interval placement of a loop recorder overlying the left lower lung field region.. Bones/extrathoracic soft tissue: There are hypertrophic spurs throughout the thoracic spine. There is left curvature of the lumbar spine. IMPRESSION: There is no radiographic evidence of acute cardiopulmonary process. Dictated by: Dictated on workstation # [id number]
== END ==
LOC: RAD 14:04
PROVIDERS: ATTEND Nurse Practitioner Family
DX: R06.00 Dyspnea, unspecified (principal)
CPT/HCPCS: 71046

== ENCOUNTER → 2022-09-15 | Outpatient (CLI) | payer MEDICARE ==
[2022-09-15 06:46] LABS: BASOPHILS % (AUTO) 1 % (0-10); EOSINOPHILS # (AUTO) 0.1 10^3/uL (0.0-0.3); EOSINOPHILS % (AUTO) 3 % (0-10); HEMATOCRIT 44 % (35-52); HEMOGLOBIN 14.2 g/dL (11.5-16.0); LYMPHOCYTES # (AUTO) 1.3 10^3/uL (1.0-4.0); LYMPHOCYTES % (AUTO) 28 % (12-44); MEAN CORPUSCULAR HEMOGLOBIN 30 pg (25-34); MEAN CORPUSCULAR HGB CONC 33 g/dL (32-36); MEAN CORPUSCULAR VOLUME 93 fL (80-99); MEAN PLATELET VOLUME 11.4 fL (9.0-12.2); MONOCYTES # (AUTO) 0.5 10^3/uL (0.0-1.0); MONOCYTES % (AUTO) 10 % (0-12); NEUTROPHILS # (AUTO) 2.8 10^3/uL (1.8-7.8); NEUTROPHILS % (AUTO) 58 % (42-75); PLATELET COUNT 191 10^3/uL (130-400); WHITE BLOOD COUNT 4.7 10^3/uL (4.3-11.0)
[2022-09-15 07:04] LABS: EOSINOPHILS % (MANUAL) 2 %; LYMPHOCYTES % (MANUAL) 23 %; MONOCYTES % (MANUAL) 12 %; NEUTROPHILS % (MANUAL) 63 %; RBC MORPH NORMAL
[2022-09-15 07:06] LABS: BILIRUBIN,TOTAL 0.5 MG/DL (0.1-1.0); CALCIUM 9.2 MG/DL (8.5-10.1); CREATININE SERUM 0.83 MG/DL (0.60-1.30); POTASSIUM 3.9 MMOL/L (3.6-5.0); TOTAL PROTEIN 6.7 GM/DL (6.4-8.2)
== END ==
LOC: LAB 06:26
PROVIDERS: ATTEND Nurse Practitioner Family
DX: R06.00 Dyspnea, unspecified (principal)
CPT/HCPCS: 36415; 80053; 83880; 85007; 85027

== ENCOUNTER 2022-09-29 06:43 | Day surgery (SDC) | payer MEDICARE ==
[~2022-09-29] VITALS: Ht 168.9 cm; Wt 71.9 kg
[2022-09-29] VITALS (10 sets, daily range): BP systolic 120–156; BP diastolic 70–89
[2022-09-29] MEDS ORDERED: LIDOCAINE 1% INJ 30 ML (XYLOCAINE) VIAL ONE (06:58)
[2022-09-29] MEDS ORDERED: HEParin (CATH LAB) 2,000 ML IV ONE (06:58)
[2022-09-29] MEDS ORDERED: NS IV 1000 ML 1,000 ML ONE (06:58)
[2022-09-29] MEDS ORDERED: NS IV 1000 ML 1,000 ML IV SCH ×2 (07:00→10:30)
[2022-09-29] MEDS ORDERED: MULT-1136 PO (07:18)
[2022-09-29] MEDS ORDERED: METO50TA7 PO (07:18)
[2022-09-29] MEDS ORDERED: ASPI-1238 PO (07:18)
[2022-09-29 07:25] LABS: HEMATOCRIT 41 % (35-52); HEMOGLOBIN 13.2 g/dL (11.5-16.0); MEAN CORPUSCULAR HEMOGLOBIN 30 pg (25-34); MEAN CORPUSCULAR HGB CONC 32 g/dL (32-36); MEAN CORPUSCULAR VOLUME 94 fL (80-99); MEAN PLATELET VOLUME 11.6 fL (9.0-12.2); PLATELET COUNT 197 10^3/uL (130-400); WHITE BLOOD COUNT 5.1 10^3/uL (4.3-11.0)
[2022-09-29 07:55] LABS: INR 0.9 (0.8-1.4); PROTHROMBIN TIME PATIENT 12.6 SEC (12.2-14.7)
[2022-09-29 08:03] LABS: ALBUMIN 3.9 GM/DL (3.2-4.5); BILIRUBIN,TOTAL 0.6 MG/DL (0.1-1.0); CALCIUM 8.9 MG/DL (8.5-10.1); CREATININE SERUM 0.88 MG/DL (0.60-1.30); POTASSIUM 3.6 MMOL/L (3.6-5.0); TOTAL PROTEIN 6.5 GM/DL (6.4-8.2)
[2022-09-29] MEDS ORDERED: MIDAZOLAM 5 MG/5 ML (VERSED) VIAL ONE (08:08)
[2022-09-29] MEDS ORDERED: fentaNYL INJ 100 MCG/2 ML AMP ONE (08:08)
[2022-09-29] MEDS ORDERED: HEParin 1000 UNIT/ML (10ML VIAL) FOR BOLUS ONE (09:28)
--- NOTE | 2022-09-29 10:29 | Discharge Inst-Post CATH ---
Discharge Inst-CATH/EP Post Cardiac Cath/EP D/C Inst Follow Up/Plan F/u with Dr Chavez in 1 week ACTIVITY * Go Home directly and rest. * Limit activity of the leg (or wrist if it was used) for 7 days including aerobics, swimming, jogging, bicycling, etc. * Restrict stair-climbing for 7 days if possible, if not, climb up with your non -cath leg, then bring together on the same step. * Avoid lifting, pushing, pulling or excessive movement of the affected extr emity for 7 days. * Customary sexual activity may be resumed after 2 days-use caution not to use a position that strains or causes pain to the affected extremity. * No driving for 24 hours. * NO SMOKING. * Avoid straining for bowel movements for 7 days. * Gentle walking on level ground is allowed. * Returning to work will depend on the type of procedure and the results. Your doctor will discuss this with you. CALL YOUR DOCTOR FOR ANY OF THE FOLLOWING: *If bleeding from the puncture site occurs- Apply gentle pressure to site with clean cloth and call your doctor or EMS. * If a knot or lump forms under the skin, increases in size, or causes pain. * If bruising appears to be worsening or moving further down your leg instead of disappearing. * Temperature above 101 F. CARE OF YOUR GROIN INCISION; * Bruising or purple discoloration of the skin near the puncture site is common. * You may shower only, no bathtub bathing for 5 days. Be careful to avoid slipping as your leg may feel stiff. * If a closure device was used on your femoral artery, please see the attached guide regarding care of the device and your leg. * Leave dressing on FOR 24 hours. CARE OF YOUR WRIST INCISION; * Bruising or purple discoloration of the skin near the puncture site is common. * You may shower. * DO NOT submerge wrist. * Leave dressing on FOR 24 hours. MERCED CHAVEZ MD [facility] CCDS Sep 29, 2022 10:29
[2022-09-29] MEDS ORDERED: PATIENT MAY USE OWN MEDS, ALL PO SCH (10:30)
[2022-09-29] MEDS ORDERED: ATOR40TA70 PO (10:30)
--- NOTE | 2022-09-29 10:32 | Discharge Inst-Cardiology ---
Discharge Inst-Cardiac Discharge Medications New Medications: Atorvastatin Calcium (Atorvastatin Calcium) 40 Mg Tablet 40 MG PO DAILY, #30 TAB 5 Refills Continued Medications: Aspirin (Aspirin EC) 81 Mg Tablet.dr 81 MG PO DAILY, TAB Cholecalciferol (Vitamin D3) (Vitamin D) 2,000 Unit Tablet 2000 UNIT PO DAILY, TAB Metoprolol Succinate (Metoprolol Succinate) 50 Mg Tab.er.24h 50 MG PO DAILY, TAB Multivitamin (Multivitamin) 1 Each Tablet 1 EACH PO DAILY, TAB Vitamin B Complex (Vitamin B Complex) 1 Each Tablet 1 EACH PO DAILY, TAB MERCED MANSFIELD MD FACP FAC CCDS Sep 29, 2022 10:32
--- NOTE | 2022-09-29 11:05 | CARDIAC CATHETERIZATION ---
DATE OF SERVICE: 09/29/2022 CARDIAC CATHETERIZATION INDICATION: The patient is an 81-year-old lady who has been having increasing shortness of breath. Symptoms have progressed to the point of shortness of breath with mild activity. Cardiac catheterization was carried out today to evaluate for any cardiac causes of her shortness of breath. DESCRIPTION OF PROCEDURE: She was brought to the cardiac catheterization laboratory in a fasting state. Right groin was prepared and draped in the usual sterile fashion. 1% lidocaine was used for local anesthesia. Modified Seldinger technique was used to advance a 5-Uzbek sheath into the right femoral artery and a 7-Uzbek sheath in the right femoral vein. We used a 7-Uzbek Decatur-Virgen catheter to carry a right heart catheterization and to measure oxygen saturation in the various right heart chambers. We then removed the Decatur-Virgen catheter and carried out left heart catheterization with a 5-Uzbek pigtail catheter advanced through the arterial sheath. We used a 5-Uzbek JL3.5 catheter for left coronary angiography and a 5-Uzbek JR4 catheter for right coronary angiography. There was some haziness in the left anterior descending artery and we tried to carry out IFR in the left anterior descending. We exchanged the sheath over a wire for a 6-Uzbek sheath. We used a 6-Uzbek JL3.5 guide catheter to engage the left coronary artery. We tried to advance the pressure wire into the left anterior descending artery. Because of extreme angulation of the origin of the left anterior descending from the left main coronary artery, we were not able to advance the wire into the left anterior descending, despite multiple attempts. The coronary status remains unchanged following these attempts. The equipment was removed. Angiography of the right femoral artery had been carried out through the sheath at the beginning of the procedure. At the end of the procedure, a Mynx was used to achieve hemostasis. She tolerated the procedure well. HEMODYNAMICS: Pulmonary artery pressure was 24/4 with a mean of 11 mmHg. Mean pulmonary wedge pressure was 4 mmHg. Right ventricular pressure was 30/1. Mean right atrial pressure was 2 mmHg. Left ventricular pressure was 116/10. Left ventricular end-diastolic pressure was 10 mmHg. There was no significant pressure gradient on pullback across the aortic valve. Ascending aortic pressure was 111/48 with a mean of 73 mmHg. CORONARY ANGIOGRAPHY: Left main coronary artery is free of significant disease. Left anterior descending artery had mild haziness in its mid portion. Flow throughout the vessel was normal. There was approximately 30% to 40% mid vessel stenosis in the left anterior descending. The left circumflex artery did not exhibit significant disease. Right coronary artery was dominant and free of significant disease. LEFT VENTRICULAR ANGIOGRAPHY: Left left ventricular angiography was carried out in the right anterior oblique projection. Global left ventricular systolic function is normal. Left ventricular ejection fraction approximately 60%. CONCLUSION: 1. Normal right heart pressures. 2. Normal pulmonary wedge pressure and left ventricular end-diastolic pressure. 3. Normal global left ventricular systolic function with an ejection fraction of approximately 60%. 4. Mild coronary artery disease consisting of 30% to 40% mid vessel stenosis of the left anterior descending. DISCUSSION AND RECOMMENDATIONS: Based on the results of the study, it appears appropriate to continue a conservative approach. Because of mild left anterior descending artery disease associated with mild haziness, we recommend myocardial perfusion imaging for evaluation for ischemia. Outpatient followup is advised. Job ID: [id number] DocumentID: [id number] Dictated Date: 09/29/2022 10:26:04 Sales Floor Associate Date: 09/29/2022 11:03:00 Dictated By: MERCED MANSFIELD MD; MA; FACP; FACC;
--- NOTE | 2022-09-29 11:30 | Cardiac Procedure Note-CS/ASA ---
Pre-Procedure Note Pre-Op Procedure Note Date of Available H&P: Sep 16, 2022 Date H&P Reviewed: Sep 29, 2022 Time H&P Reviewed: 08:40 History & Physical: H&P Reviewed, No changes noted Conscious Sedation Pre-Proced ASA Score 3 For ASA 3 and 4: Consider anesthesia and medical clearance. Also, for patients with a history of failed moderate sedation consider anesthesia. Airway Lungs Heart ASA score ASA 1: a normal healthy patient ASA 2: a patient with a mild systemic disease (mid diabetes, controlled hypertension, obesity ASA 3: a patient with a severe systemic disease that limits activity (angina, COPD, prior Myocardial infarction) ASA 4: a patient with an incapacitating disease that is a constant threat to life (CHF, renal failure) ASA 5: a moribund patient not expected to survive 24 hrs. (ruptured aneurysm) ASA 6: a declared brain- patient whose organs are being harvested. For emergent operations, add the letter E after the classification Mallampati Classification Grade 2 Sedation Plan Analgesia, Amnesia, Plan communicated to team members The patient is an appropriate candidate to undergo the planned procedure, sedation, and anesthesia. The patient immediately re-assessed prior to indication. MERCED MANSFIELD MD FACP FAC CCDS Sep 29, 2022 11:30
== END 2022-09-29 13:45 | disposition home or self-care (01) ==
LOC: CATH 06:43 → SDC 10:43 → CATH 13:45
PROVIDERS: ATTEND Internal Medicine Cardiovascular Disease
DX: I25.10 Atherosclerotic heart disease of native coronary artery without angina pectoris (principal); R00.2 Palpitations; R20.0 Anesthesia of skin; H35.30 Unspecified macular degeneration; I35.1 Nonrheumatic aortic (valve) insufficiency; I47.1 Supraventricular tachycardia; I49.1 Atrial premature depolarization; I10 Essential (primary) hypertension; R22.42 Localized swelling, mass and lump, left lower limb; R06.09 Other forms of dyspnea; I77.9 Disorder of arteries and arterioles, unspecified
CPT/HCPCS: 80053; 80061; 85027; 85610; 85730; 87081; 93005; 93460; 93571; C1760; C1769 ×2; C1887; C1894 ×3; 36415

== ENCOUNTER 2022-10-03 07:37 | Emergency (ER) | payer MEDICARE ==
[~2022-10-03] VITALS: Ht 165 cm; Wt 68.0 kg
[~2022-10-03 07:37] MED LIST changes: +ASPI-1238 PO; +ATOR40TA70 PO; +METO50TA7 PO; +MULT-1136 PO
[2022-10-03 08:00] VITALS: BP 144/82
--- NOTE | 2022-10-03 08:48 | ED General ---
General Chief Complaint: General Problems/Pain Stated Complaint: POST CATH KNOT IN GROIN Nursing Triage Note: HEART CATH ON WEDNESDAY WITH DONAL. TODAY COMPLAINS OF A KNOT RIGHT GROIN AREA WITH INCREASED BRUISING. History of Present Illness Date Seen by Provider: Oct 03, 2022 Time Seen by Provider: 08:30 Initial Comments 81-year-old female presents emerged department today for swelling in her right groin. She had a heart cath on 09/29. She did not necessarily notice the small bump in her groin initially but states "I could not swear it was not there then." She noticed that this morning and reports that if she had a knot in the area to seek care. She tried to call Dr. Mansfield's office but there was no call number for weekend services. She has no pain. No paresthesias in her extremity. Allergies and Home Medications Allergies Coded Allergies: clindamycin (Verified Allergy, Unknown, NAUSEA, 06/14/18) epinephrine (Verified Allergy, Unknown, 04/16/09) hydrocodone (Verified Allergy, Unknown, hallucinations, 06/14/18) ibuprofen (Verified Allergy, Unknown, swelling, 06/14/18) Patient Home Medication List Home Medication List Reviewed: Yes Aspirin (Aspirin EC) 81 Mg Tablet.dr, 81 MG PO DAILY, (Reported) Entered as Reported by: YAMILEX ESTEVEZ on 09/29/22717 Atorvastatin Calcium (Atorvastatin Calcium) 40 Mg Tablet, 40 MG PO DAILY Prescribed by: MERCED MANSFIELD on 09/29/22 1030 Cholecalciferol (Vitamin D3) (Vitamin D) 2,000 Unit Tablet, 2,000 UNIT PO DAILY, (Reported) Entered as Reported by: CAREY VEGA on 06/14/18 1015 Metoprolol Succinate (Metoprolol Succinate) 50 Mg Tab.er.24h, 50 MG PO DAILY, (Reported) Entered as Reported by: YAMILEX ESTEVEZ on 09/29/22 07 Multivitamin (Multivitamin) 1 Each Tablet, 1 EACH PO DAILY, (Reported) Entered as Reported by: YAMILEX ESTEVEZ on 09/29/22717 Vitamin B Complex (Vitamin B Complex) 1 Each Tablet, 1 EACH PO DAILY, (Reported) Entered as Reported by: CAREY VEGA on 06/14/18 1015 Discontinued Medications Carboxymethyl/Glycerin/Poly80 (Refresh Optive Advanced Drops) 10 Ml Drops, (Reported) Discontinued Reason: No Longer Taking Entered as Reported by: MEL CAVAZOS on 02/22/19 011 Hyoscyamine Sulfate (Levsin-Sl) 0.125 Mg Tab.subl, 1-2 TAB SL Q4H Discontinued Reason: No Longer Taking Prescribed by: ETHEL XIE on 02/22/19220 Ondansetron (Ondansetron Odt) 4 Mg Tab.rapdis, 4 MG PO Q4H Discontinued Reason: No Longer Taking Prescribed by: ETHEL XIE on 02/22/19220 Vit A,C & E/Lutein/Minerals (Vision Vitamins Tablet) 1 Each Tablet, 1 EACH PO DAILY, (Reported) Discontinued Reason: No Longer Taking Entered as Reported by: CAREY VEGA on 06/14/18 1015 Review of Systems Review of Systems Constitutional: no symptoms reported EENTM: no symptoms reported Respiratory: no symptoms reported Cardiovascular: no symptoms reported Gastrointestinal: no symptoms reported Genitourinary: no symptoms reported Musculoskeletal: other (Right groin swelling) Skin: no symptoms reported Psychiatric/Neurological: No Symptoms Reported Hematologic/Lymphatic: No Symptoms Reported Past Ynxrtdg-Khfzme-Xsmtbl Hx Patient Social History Tobacco Use?: No Use of E-Cig and/or Vaping dev: No Substance use?: No Alcohol Use?: No Immunizations Up To Date Tetanus Booster (TDap): Unknown COVID19 Vaccine 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 Seasonal Allergies Seasonal Allergies: No Past Medical History Surgeries: Yes Hysterectomy, Tonsillectomy Respiratory: No Cardiac: No Neurological: Yes Neuropathy Reproductive Disorders: No 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, 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 Sexually Transmitted Disease: No Genitourinary: Yes UTI-Chronic Gastrointestinal: Yes Gastroesophageal Reflux Musculoskeletal: No Endocrine: No HEENT: Yes Cataract, Macular Degeneration Cancer: Yes Skin Did You Recieve Any Treatments: Yes What Type of Treatment Did You: Surgical Intervention Psychosocial: No Integumentary: No Blood Disorders: No Family Medical History Reviewed Nursing Family Hx No Pertinent Family Hx Physical Exam Vital Signs Vital Signs - First Documented 10/03/22 08:00 Temp 36.9 Pulse 60 Resp 16 B/P (MAP) 144/82 (102) Pulse Ox 97 O2 Delivery Room Air Capillary Refill : Less Than 3 Seconds Height, Weight, BMI Height: 5'6.00" Weight: 160lbs. 0.0oz. 72.202786td; 24.00 BMI Method:Stated General Appearance: No Apparent Distress, WD/WN HEENT: Normal ENT Inspection, Pharynx Normal Neck: Full Range of Motion, Normal Inspection, Non Tender, Supple Respiratory: Chest Non Tender, Lungs Clear, Normal Breath Sounds, No Accessory Muscle Use, No Respiratory Distress Cardiovascular: Regular Rate, Rhythm, No Edema, No JVD, No Murmur, Normal Peripheral Pulses Gastrointestinal: Normal Bowel Sounds, No Organomegaly, No Pulsatile Mass, Non Tender, Soft Back: Normal Inspection, No Vertebral Tenderness Extremity: Normal Capillary Refill, Normal Range of Motion, Non Tender, No Calf Tenderness, Other (Dime size area palpable induration in inguinal fold in the right groin. This is over the puncture site. Good palpable pulses. The area is not apparently expanding. There is small amount of ecchymosis in the right groin) Neurologic/Psychiatric: Alert, Oriented x3, Normal Mood/Affect Skin: Warm/Dry, Ecchymosis Progress/Results/Core Measures Suspected Sepsis SIRS Temperature: Pulse: 60 Respiratory Rate: 16 Blood Pressure 144 /82 Mean: 102 Results/Orders Vital Signs/I&O 10/03/22 08:00 Temp 36.9 Pulse 60 Resp 16 B/P (MAP) 144/82 (102) Pulse Ox 97 O2 Delivery Room Air Capillary Refill : Less Than 3 Seconds Blood Pressure Mean: 102 Departure Communication (Admissions) 0855: SPoke with Dr Mansfield. He agrees no real concerns at this time. Stable for discharge. Given strict return precautions regarding expansion, neurovascular symptoms or leg. She states understanding. Discharged home recommended follow with Dr. Alcaraz on Wednesday. Impression Primary Impression: Postoperative hematoma involving circulatory system following cardiac catheterization Disposition: HOME, SELF-CARE Condition: Stable Departure-Patient Inst. Referrals: MONTSERRAT LR DO (PCP/Family) Primary Care Physician Add. Discharge Instructions: Keep an eye on the area to make sure is not expanding. Follow-up with Dr. Mansfield's office on Wednesday. Return to the emergency department for any rapid expansion, numbness or significant pain in your leg or if your symptoms change in any way concerning to you. All discharge instructions reviewed with patient and/or family. Voiced understanding. Copy Copies To 1: MERCED MANSFIELD MD FACP FACC CCDS CARLEY,ANTONIO L DO Oct 03, 2022 08:48
== END 2022-10-03 08:58 | disposition home or self-care (01) ==
LOC: EDUNIT# 07:37 → ER 07:39
DX: I97.630 Postprocedural hematoma of a circulatory system organ or structure following a cardiac catheterization (principal)
CPT/HCPCS: 99281

== ENCOUNTER → 2022-10-21 | Outpatient (CLI) | payer MEDICARE ==
--- NOTE | 2022-10-21 21:11 | Diagnostic Imaging Report ---
INDICATION: Routine screening. COMPARISON: Prior mammograms from 08/15/2021 and 06/06/2020. EXAMINATION: 2D and 3D bilateral screening mammography was performed with CAD. The current study was also evaluated with a Computer Aided Detection (CAD) system. FINDINGS: Scattered fibroglandular densities are identified, bilaterally. Marker clip in upper outer left breast is noted from prior biopsy. There is a cardiac loop recorder overlying the medial left breast tissues. There are benign calcifications, bilaterally. No dominant mass or malignant-appearing microcalcifications are seen. Axillae are unremarkable. IMPRESSION: No mammographic features suspicious for malignancy are identified. ACR BI-RADS Category 2: Benign findings. Result letter will be mailed to the patient. Note: At least 10% of breast cancer is not imaged by mammography. Dictated by: Dictated on workstation # [id number]
== END ==
LOC: RAD 10:26
PROVIDERS: ATTEND Nurse Practitioner Family
DX: Z12.31 Encounter for screening mammogram for malignant neoplasm of breast (principal)
CPT/HCPCS: 77063; 77067

== ENCOUNTER → 2022-11-11 | Outpatient (CLI) | payer MEDICARE | LOC: CARD 08:39 | PROVIDERS: ATTEND Internal Medicine Cardiovascular Disease | DX: I35.1 Nonrheumatic aortic (valve) insufficiency (principal) | CPT/HCPCS: 93306 ==

== ENCOUNTER → 2022-11-13 | Outpatient (CLI) | payer MEDICARE ==
[2022-11-13 08:28] LABS: ALBUMIN 4.1 GM/DL (3.2-4.5); BILIRUBIN,TOTAL 0.7 MG/DL (0.1-1.0); CALCIUM 9.2 MG/DL (8.5-10.1); CREATININE SERUM 0.87 MG/DL (0.60-1.30); POTASSIUM 3.9 MMOL/L (3.6-5.0); TOTAL PROTEIN 6.5 GM/DL (6.4-8.2)
== END ==
LOC: LAB 07:39
PROVIDERS: ATTEND Internal Medicine Cardiovascular Disease
DX: E78.2 Mixed hyperlipidemia (principal)
CPT/HCPCS: 36415; 80053; 80061

== ENCOUNTER → 2023-08-27 | Outpatient (CLI) | payer MEDICARE ==
[2023-08-27 09:38] LABS: BASOPHILS % (AUTO) 0 % (0-10); EOSINOPHILS # (AUTO) 0.1 10^3/uL (0.0-0.3); EOSINOPHILS % (AUTO) 3 % (0-10); HEMATOCRIT 44 % (35-52); HEMOGLOBIN 14.4 g/dL (11.5-16.0); LYMPHOCYTES # (AUTO) 1.3 10^3/uL (1.0-4.0); LYMPHOCYTES % (AUTO) 25 % (12-44); MEAN CORPUSCULAR HEMOGLOBIN 30 pg (25-34); MEAN CORPUSCULAR HGB CONC 33 g/dL (32-36); MEAN CORPUSCULAR VOLUME 92 fL (80-99); MEAN PLATELET VOLUME 11.6 fL (9.0-12.2); MONOCYTES # (AUTO) 0.6 10^3/uL (0.0-1.0); MONOCYTES % (AUTO) 11 % (0-12); NEUTROPHILS # (AUTO) 3.2 10^3/uL (1.8-7.8); NEUTROPHILS % (AUTO) 62 % (42-75); PLATELET COUNT 195 10^3/uL (130-400); WHITE BLOOD COUNT 5.2 10^3/uL (4.3-11.0)
--- NOTE | 2023-08-27 10:24 | Diagnostic Imaging Report ---
CLINICAL INDICATION: Patient with acute cough and dyspnea on exertion. EXAM: Chest x-ray PA and lateral views. COMPARISON: Chest x-ray dated 09/14/2022. FINDINGS: Lungs/pleura: Lungs are clear. There is no pneumothorax. There is no pleural effusion. Mediastinum: Unremarkable. Pulmonary vasculature: Unremarkable. Heart: Heart size is within normal limits. Again seen is a loop recorder overlying the left anterior chest region. Bones/extrathoracic soft tissue: There is left curvature of the thoracolumbar spine. There are hypertrophic spurs involving the thoracic spine and lumbar spine. IMPRESSION: There is no radiographic evidence of acute cardiopulmonary process. Dictated by: Dictated on workstation # [id number]
== END ==
LOC: RAD 09:15
PROVIDERS: ATTEND Nurse Practitioner Family
DX: R05.1 Acute cough (principal); R06.09 Other forms of dyspnea
CPT/HCPCS: 36415; 71046; 83880; 85025